=== PATIENT | male | born 1960 | race Native Hawaiian/Other Pacific Islander ===

== ENCOUNTER 2016-11-17 13:49 | Outpatient (CLI) | payer OTHER | END 2016-11-17 13:57 | disposition short-term general hospital (02) | LOC: AMB 13:49 | DX: R47.81 Slurred speech (principal); R29.810 Facial weakness; G81.91 Hemiplegia, unspecified affecting right dominant side; R00.0 Tachycardia, unspecified | CPT/HCPCS: A0425; A0427 ==

== ENCOUNTER 2016-11-17 13:57 | Emergency (ER) | payer OTHER ==
[~2016-11-17] VITALS: Ht 152.4 cm; Wt 1.8 kg
[2016-11-17 14:09] VITALS: TEMP 98.3
[2016-11-17 14:26] LABS: PLATELET COUNT 263 K/uL (142-355)
[2016-11-17 14:27] LABS: POTASSIUM 2.9 mmol/L (3.6-5.2); SODIUM 139 mmol/L (136-145)
[2016-11-17 15:05] VITALS: BP 148/78
== END 2016-11-17 15:25 | disposition short-term general hospital (02) ==
LOC: ED 13:57
DX: I61.8 Other nontraumatic intracerebral hemorrhage (principal); R53.1 Weakness; R47.81 Slurred speech; R00.0 Tachycardia, unspecified; I45.81 Long QT syndrome
CPT/HCPCS: 80053; 80320; 84484; 85027; 85610; 85730; 93005; 96374; 99285; J3480; J3490

== ENCOUNTER 2016-11-17 15:32 | Outpatient (CLI) | payer OTHER | END 2016-11-17 16:41 | disposition short-term general hospital (02) | LOC: AMB 15:32 | DX: I61.8 Other nontraumatic intracerebral hemorrhage (principal); R53.1 Weakness; R47.81 Slurred speech; R00.0 Tachycardia, unspecified; I45.81 Long QT syndrome | CPT/HCPCS: A0425; A0427 ==

== ENCOUNTER 2017-01-14 12:03 | Emergency (ER) | payer OTHER ==
[~2017-01-14] VITALS: Ht 177.8 cm; Wt 103.4 kg
[2017-01-14 12:56] LABS: PLATELET COUNT 238 K/uL (142-355)
[2017-01-14 13:02] LABS: POTASSIUM 3.3 mmol/L (3.6-5.2); SODIUM 138 mmol/L (136-145)
[2017-01-14 13:40] VITALS: BP 163/91; TEMP 98
== END 2017-01-14 13:55 | disposition left against medical advice (07) ==
LOC: ED 12:03
PROVIDERS: Emergency Medicine
DX: R53.1 Weakness (principal); R41.82 Altered mental status, unspecified
CPT/HCPCS: 36415; 80053; 80307; 80320; 81000; 82550; 84484; 85027; 93005; 99283; G0479

== ENCOUNTER 2019-09-30 16:07 | Emergency (ER) | payer OTHER ==
[~2019-09-30] VITALS: Ht 170.2 cm; Wt 113.4 kg
[2019-09-30 16:35] VITALS: BP 155/80; TEMP 99.5
== END 2019-09-30 16:38 | disposition home or self-care (01) ==
LOC: ED 16:07
DX: S90.561A Insect bite (nonvenomous), right ankle, initial encounter (principal); L08.9 Local infection of the skin and subcutaneous tissue, unspecified; W57.XXXA Bitten or stung by nonvenomous insect and other nonvenomous arthropods, initial encounter; Y92.89 Other specified places as the place of occurrence of the external cause
CPT/HCPCS: 99281

== ENCOUNTER 2020-03-27 09:58 | Emergency (ER) | payer OTHER ==
[~2020-03-27] VITALS: Ht 167.6 cm; Wt 108.9 kg
[2020-03-27 09:58] VITALS: TEMP 99.8
[2020-03-27 11:07] LABS: POTASSIUM 4.1 mmol/L (3.6-5.2); SODIUM 137 mmol/L (136-145)
[2020-03-27 11:23] LABS: PLATELET COUNT 189 K/uL (142-355)
[2020-03-27 13:00] VITALS: BP 137/76
== END 2020-03-27 14:00 | disposition home or self-care (01) ==
LOC: ED 10:09
PROVIDERS: Emergency Medicine
DX: U07.1 COVID-19 (principal); J06.9 Acute upper respiratory infection, unspecified; L08.89 Other specified local infections of the skin and subcutaneous tissue; L98.8 Other specified disorders of the skin and subcutaneous tissue
CPT/HCPCS: 80053; 82550; 82553; 83605; 84484; 85027; 85379; 87040; 87502; 87635; 87651; 93005; 96372; 99283; J1885; U00003